=== PATIENT | male | born 1985 | race Caucasian/White ===

== ENCOUNTER 2018-11-16 22:04 | Emergency (ER) | payer OTHER ==
[~2018-11-16] VITALS: Ht 172.7 cm; Wt 81.7 kg
[~2018-11-16 22:04] MED LIST: ACETAMINOPHEN-1 EAC1 PO; CEPHALEXIN 500500 M3 PO; IBUPROFEN 800800 M1 PO; NABUMETONE 750750 M1 PO; NORCO 5-325 TA1 EACH PO; PERCOCET 5-3251 EACH PO
[2018-11-16 22:23] LABS: URINE BILIRUBIN 1+ (Negative); URINE BLOOD NEGATIVE (Negative); URINE CLARITY CLEAR; URINE COLOR YELLOW; URINE GLUCOSE-RANDOM* NEGATIVE (Negative); URINE KETONES 1+ (Negative); URINE LEUKOCYTES-REFLEX NEGATIVE (Negative); URINE NITRITE-REFLEX NEGATIVE (Negative); URINE PROTEIN (DIPSTICK) TRACE (Negative); URINE SPECIFIC GRAVITY >= 1.030 (1.005-1.035)
[2018-11-16 22:30] LABS: AMP/METHAMP POSITIVE (Negative); BARBITURATES Negative (Negative); BENZODIAZEPINES Negative (Negative); COCAINE Negative (Negative); METHADONE Negative (Negative); OPIATES Negative (Negative); PCP Negative (Negative)
[2018-11-16 23:19] LABS: ABSOLUTE NEUTROPHILS 5.5 thou/uL (1.4-8.2); EOSINOPHILS 2.4 % (0.0-3.0); HEMATOCRIT 41.8 % (42.0-52.0); HEMOGLOBIN 14.5 gm/dL (14.0-18.0); LYMPHOCYTES 15.5 % (24.0-44.0); MCHC 34.7 g/dL (28.0-37.0); MCV 86.4 fL (80.0-100.0); MONOCYTES 9.9 % (1.0-8.0); PLATELET COUNT 259 thou/uL (150-400); POLYS 71.2 % (36.0-66.0); RBC 4.84 mil/uL (4.50-6.00); RDW 13.1 % (10.5-14.5); WBC 7.7 thou/uL (4.0-11.0)
[2018-11-16 23:27] LABS: CALCIUM 9.5 mg/dL (8.5-10.1); POTASSIUM 3.3 mmol/L (3.5-5.1)
[2018-11-16 23:33] LABS: ALBUMIN 3.4 g/dL (3.4-5.0); TOTAL BILIRUBIN 0.4 mg/dL (<0.1-1.0); TOTAL PROTEIN 7.3 g/dL (6.4-8.2)
[2018-11-17 01:11] VITALS: BP 167/108
== END 2018-11-17 01:11 | disposition left against medical advice (07) ==
LOC: ER 22:04
PROVIDERS: Nurse Practitioner Family
DX: L02.511 Cutaneous abscess of right hand (principal); R44.0 Auditory hallucinations